=== PATIENT | female | born 1950 | race Hispanic/Latino ===

== ENCOUNTER → 2023-01-28 | Outpatient (CLI) | payer OTHER | END | disposition home or self-care (01) | LOC: SHCH 07:39 | PROVIDERS: ATTEND Internal Medicine Cardiovascular Disease | DX: I77.1 Stricture of artery (principal); R60.0 Localized edema | CPT/HCPCS: 93931; 93971 ==

== ENCOUNTER 2023-04-29 05:45 | Day surgery (SDC) | payer OTHER ==
[2023-04-24 09:03] LABS: BASOPHILS % (AUTO) 1.3 % (0.0-5.0); EOSINOPHILS # (AUTO) 0.34 K/uL (0.00-0.70); EOSINOPHILS % (AUTO) 4.4 % (0.0-8.0); HEMATOCRIT 30.3 % (36-48); IMMATURE GRANULOCYTE ABSOLUTE 0.04 K/uL (0-1); LYMPHOCYTES # (AUTO) 2.3 K/uL (1.0-4.8); LYMPHOCYTES % (AUTO) 29.1 % (21.0-51.0); MEAN CORPUSCULAR HEMOGLOBIN 24.9 pg (27.0-33.0); MEAN CORPUSCULAR HGB CONC 31.7 g/dL (32.0-36.0); MEAN CORPUSCULAR VOLUME 78.7 fL (79-99); MONOCYTES # (AUTO) 0.7 K/uL (0.1-1.0); MONOCYTES % (AUTO) 8.5 % (3.0-13.0); NEUTROPHILS # (AUTO) 4.4 K/uL (1.8-7.7); NEUTROPHILS % (AUTO) 56.2 % (40.0-77.0); PLATELET COUNT (AUTO) 427 K/uL (130-400); RED BLOOD CELL COUNT(AUTO) 3.85 MIL/uL (4.00-5.50); RED CELL DISTRIBUTION WIDTH 15.7 % (11.0-15.5); WHITE BLOOD COUNT (AUTO) 7.8 K/uL (4.8-10.8)
[2023-04-24 09:04] VITALS: BP 181/89; PULSE 83; RESP 18
[2023-04-24 09:11] LABS: POTASSIUM 5.1 mmol/L (3.5-5.1)
[2023-04-24 09:12] LABS: INR <= 0.93 (0.85-1.15); PROTHROMBIN TIME 10.6 SEC (9.6-11.6)
[~2023-04-29] VITALS: Ht 152.4 cm; Wt 52.0 kg
[2023-04-29] VITALS (14 sets, daily range): BP systolic 78–150; BP diastolic 38–88; PULSE 78–90; RESP 10–16
[~2023-04-29 05:45] MED LIST: ALEN70TA80 PO; LISI20TA24 PO; METF-444 PO; ROSU10TA28 PO
[2023-04-29] MEDS: 0.9%NACL 1000ML 1,000 ML IV ONE (06:34)
[2023-04-29] MEDS: CEFAZOLIN SODIUM 2 GM VIAL ONE (06:34)
[2023-04-29] MEDS ORDERED: LIDOCAINE PF 100MG/5ML (2%) SYRINGE 5ML ONE (07:31)
[2023-04-29] MEDS ORDERED: PROPOFOL 10 MG/ML 20ML VIAL IV ONE (07:31)
[2023-04-29] MEDS ORDERED: FENTANYL CITRATE PF 50 MCG/1 ML 2ML VIAL ONE (07:40)
[2023-04-29] MEDS ORDERED: PHENYLEPHRINE HCL 10 MG/ML 1ML VIAL IV ONE (07:44)
[2023-04-29] MEDS ORDERED: ONDANSETRON 4MG INJ ONE (07:47)
[2023-04-29] MEDS ORDERED: DEXAMETHASONE SOD PHOSPHATE 10MG/ML 1ML VIAL ONE (07:47)
[2023-04-29] MEDS: BUPIVACAINE/PF 0.25% 30ML VIAL IJ ONE (07:50)
[2023-04-29] MEDS ORDERED: DOCU-116 PO (08:05)
[2023-04-29] MEDS ORDERED: TRAM50TA4 PO (08:05)
[2023-04-29] MEDS: KETOROLAC 30MG VIAL (30MG/ML) ONE (08:40)
[2023-04-29] MEDS: ONDANSETRON 4MG INJ ONE (09:15)
== END 2023-04-29 09:40 | disposition home or self-care (01) ==
LOC: DAH 05:45
PROVIDERS: ATTEND Surgery
DX: D17.1 Benign lipomatous neoplasm of skin and subcutaneous tissue of trunk (principal); I10 Essential (primary) hypertension; E11.9 Type 2 diabetes mellitus without complications; E78.5 Hyperlipidemia, unspecified; E55.9 Vitamin D deficiency, unspecified; Z79.899 Other long term (current) drug therapy; Z79.01 Long term (current) use of anticoagulants; Z98.890 Other specified postprocedural states; Z98.891 History of uterine scar from previous surgery; Z82.49 Family history of ischemic heart disease and other diseases of the circulatory system; Z83.3 Family history of diabetes mellitus; Z79.84 Long term (current) use of oral hypoglycemic drugs
CPT/HCPCS: 80048; 85025; 85610; 36415; 93005; 21932; 82948 ×2; 88304; A6260; J3010; J1100; J7030; J0665; J2001; J2704; J2405 ×2; J1885; J2371; J0690; A4215; A4223; A4222; A4221; A4663; A4600; J3490